=== PATIENT | female | born 1990 ===

== ENCOUNTER 2024-08-21 06:30 | Outpatient (REF) | payer OTHER, SELFPAY ==
--- NOTE | ~2024-08-21 | US_ITS ---
EXAMINATION: US PELVIS TRANSABDOMINAL AND TRANSVAGINAL HISTORY: FIBROID UT, ABN UTERINE BLEEDING COMPARISON: There are no prior studies for comparison. TECHNIQUE: Transabdominal and endovaginal real-time 2D telles-scale ultrasound was performed. FINDINGS: Uterus: The uterus is normal in size, measuring 7.2 x 3.4 x 4.1 cm. Myometrium has a normal echotexture. No fibroids are identified. Endometrium: The endometrial stripe measures 3 mm in thickness. Right ovary: The right ovary is not identified. Left ovary: The left ovary is not identified. Pelvic fluid: none. US/US pelvic and transvaginal IMPRESSION: Unremarkable appearing uterus with no evidence of thickening of the endometrial stripe. The ovaries are not identified. Electronically signed by: Mehdi Oliveros MD 08/21/2024 11:17 AM [facility]
== END 2024-08-21 06:31 | disposition home or self-care (01) ==
LOC: HO.UMASIMG 06:30
PROVIDERS: Visit Provider Nurse Practitioner
DX: N93.9 Abnormal uterine and vaginal bleeding, unspecified (principal)
CPT/HCPCS: 76830; 76856

== ENCOUNTER → 2024-08-21 10:30 | Outpatient (BNV) | payer OTHER, SELFPAY | PROVIDERS: Visit Provider Radiology Diagnostic Radiology | DX: N93.9 Abnormal uterine and vaginal bleeding, unspecified (principal) | CPT/HCPCS: 76830; 76856 ==

== ENCOUNTER 2025-03-26 06:21 | Outpatient (REF) | payer OTHER, SELFPAY ==
--- NOTE | ~2025-03-26 | US_ITS ---
EXAMINATION: US PELVIS CLINICAL INFORMATION: Left lower quadrant pain. History of ovarian cyst. COMPARISON: August 21, 2024 reporting no gross ovarian cyst TECHNIQUE: Ultrasound of the pelvis is performed using both transabdominal and transvaginal transducers along with Doppler. Transvaginal imaging is performed due to inadequate visualization transabdominally. FINDINGS: Uterus: The uterus is in retroversion flexion and measures 9 x 4 x 5 cm. The double wall endometrial thickness is 3 mm. The uterus is smooth in contour and has normal myometrial echogenicity. No visible fibroid. Adnexa: The ovaries are not fully identified there appears to be a structure labeled as a right ovary by the technologist.. Trace amount of free fluid in the cul-de-sac . Right ovary measures 3 x 2 x 2 cm. Volume: 6.3 cc. US/US pelvic and transvaginal IMPRESSION: Uterus is in retroversion flexion position with normal endometrial stripe. The ovaries are not fully depicted on this examination. Small amount of free fluid in the cul-de-sac. If the patient's symptoms persist recommend IV contrast enhanced MRI pelvis. Electronically signed by: Jorge Hickman MD 03/26/2025 02:44 PM EDT
--- OUTSIDE RECORDS SUMMARY | 2025-03-26 06:25 | XMS_ITS | Encounter Summary ---
Author Organization [facility] Address [address] [place] [address] Phone Support Name Relationship Address Phone Sushant Mendes Personal Relationship [address] [place], [address] Care Team Providers Care Certified Recreational Therapist Name Role Phone Jeane Rahman Kareen HATCH Primary Care Provider [phone] Ania Mckay MD Unavailable [phone] Encounter Details Date Type Department Care Team (Late st Contact Info) Description 01/12/2022 Transcribe Orders Virtual Department [address] [place] [address] Macarena Caal PA-C [address] [place] [id number] [email or web address] LLQ pain (Primary Dx) Social History Tobacco Use Types Packs/Day Years Used Date Smoking Tobacco: Never Assessed Comments No Sex and Gender Information Value Date Recorded Sex Assigned at Not on file Legal Sex Female 5:35 PM EST Gender Identity Not on file Sexual Orientation Not on file documented as of this encounter Plan of Treatment Upcoming Encounters Date Type Department Care Team (Late st Contact Info) Description 09/03/2024 Procedure Pass [facility] [address] [place] [address] 07/22/2025 10:30 AM EST Appointment Echo Lab [address] [place] [address] Tom Dominguez, DO [address] [place] [address] 09/02/2025 10:15 AM EST Office Visit [facility] [address], [address] [place], [place] [id number] Tom Dominguez DO [address] [place] [address] documented as of this encounter Results * US PELVIS TRANSABDOMINAL PLUS TRANSVAGINAL (02/02/2022 4:06 PM EDT) Anatomical Region Laterality Modality Pelvis, Uterus/Adnexa Ultrasound 02/02/2022 4:57 PM EDT Impressions 02/02/2022 5:17 PM EDT 1.7 mm intramural uterine fibroid. 2.Nonspecific trace fluid in the cervical canal. 3.Normal right ovary and endometrium. 4.Left ovary not visualized. Narrative 02/02/2022 5:17 PM EDT COMPARISON: None. PELVIC & ENDOVAGINAL ULTRASOUND FINDINGS: Uterus: 7.5 x 3.6 x 4 cm. Small ill-defined hypoechoic mass in the upper uterine body measuring 6 x 5 x 7 mm. Small amount of fluid in the cervical canal. Endometrium: 5 mm. No polyps identified. Right ovary: 2.6 x 2 x 1.4 cm-3.8 cc. Normal perfusion. Duplex scan of ovarian blood flow visualization with utilization of color and spectral doppler. Left ovary: Not visualized. Cul-de-sac: Trace free fluid. Procedure Note kD Andujar MD - 02/02/2022 COMPARISON: None. PELVIC & ENDOVAGINAL ULTRASOUND FINDINGS: Uterus: 7.5 x 3.6 x 4 cm. Small ill-defined hypoechoic mass in the upperuterine body measuring 6 x 5 x 7 mm. Small amount of fluid in the cervicalcanal. Endometrium: 5 mm. No polyps identified. Right ovary: 2.6 x 2 x 1.4 cm-3.8 cc. Normal perfusion. Duplex scan ofovarian blood flow visualization with utilization of color and spectraldoppler. Left ovary: Not visualized. Cul-de-sac: Trace free fluid. IMPRESSION: 1.7 mm intramural uterine fibroid. 2.Nonspecific trace fluid in the cervical canal. 3.Normal right ovary and endometrium. 4.Left ovary not visualized. us Macarena Caal PA-C IMG US PELVIS Final Res ult documented in this encounter Visit Diagnoses Diagnosis LLQ pain- Primary Abdominal pain, left lower quadrant LLQ pain Abdominal pain, left lower quadrant documented in this encounter Care Teams Certified Recreational Therapist Relationship Specialty Start Date End Date Jeane Rahman CNP [address] [place] [id number] PCP - General Adult Health 08/13/18 Ania Mckay MD [address] [address] Primary Oncologist Hematology and Oncology 06/27/23 documented as of this encounter Additional Source Comments The information contained in this document represents components of the legal health record. It is not the complete legal health record.[facility]
== END 2025-03-26 06:22 | disposition home or self-care (01) ==
LOC: HO.UMASIMG 06:21
PROVIDERS: Visit Provider Nurse Practitioner
DX: R19.7 Diarrhea, unspecified (principal); R10.30 Lower abdominal pain, unspecified
CPT/HCPCS: 76830; 76856

== ENCOUNTER → 2025-03-26 13:11 | Outpatient (BNV) | payer OTHER, SELFPAY | PROVIDERS: Visit Provider Radiology Diagnostic Radiology | DX: R10.30 Lower abdominal pain, unspecified (principal) | CPT/HCPCS: 76830; 76856 ==